=== PATIENT | male | born 1925 | race Caucasian/White ===

== ENCOUNTER 2016-06-03 16:28 | Inpatient (IN) | payer OTHER ==
[~2016-06-03] VITALS: Ht 188 cm; Wt 72.0 kg
--- NOTE | 2016-06-03 18:11 | ED CLINICAL REPORT ---
Clinical Report - Physicians/Mid Levels [facility] [address] [place] [address] 06/03/2016 16:34 Patient: JAZMYN HENNESSY Time Seen: 17:14. Arrived- By private vehicle. Historian- patient. HISTORY OF PRESENT ILLNESS Chief Complaint: WEIGHT LOSS, BLACK STOOLS and WEAKNESS. This started several months ago and is still present and now worse. It was gradual in onset and has been constant. The patient has had weight loss, fatigue and weakness. (patient presents with multiple vague complaints. He reports that over the past 9 months he has had significant weight loss. He also reports that he has had problems swallowing and that this is become progressively worse he says that it makes him "spit up and vomit" he struggles handling his own secretions. He says that recently he has started bringing up blood and discussion with him it's not clear whether he is coughing this up or whether it's coming from his esophagus. He's been told in the past that he should have a scope but down to look at why his swallowing is so difficult. He hasn't up to this point decided whether or not he wants it done but now feels that he would like to. Additionally he reports having dark stools and is not sure whether this is due to the iron that he has been taking or some other reason. Over the past week he has not been able to get up and his son with whom he lives his struggling to help him with his activities of daily living). REVIEW OF SYSTEMS No chills, fever, sweats, calf pain or chest pain. No diarrhea. He has had fatigue and black stools. He has had a cough productive of copious amounts of thick, yellow, frankly bloody sputum (for 2 days). He has had moderate pedal edema involving the right and left leg (chronically). It has been similar to previous symptoms. He has had mild constipation (chronically). All systems otherwise negative, except as recorded above. PAST HISTORY Problems: Neuropathy. Pneumonia. Bradycardia. Hemorrhoids. Skull Fracture. Additional Surgeries: Cardiac stents . Cholecystectomy. Pacemaker. Medications: Zantac Oral. Vit X4-[id number]-Cslr-FA-B6-Zn-CU Oral. Colace Oral. Azelastine HCl Nasal. Fluticasone Propionate Nasal. Simvastatin Oral (Tablet 10 mg) 1 tablet, at bedtime. KCL 20 meq, daily. Fenofibrate Oral. Eliquis Oral (Tablet 5 mg) 1 tablet. Carvedilol Phosphate ER Oral 6.25, daily . Allergies: No Known Drug Allergy. SOCIAL HISTORY Smoker- current status unknown. He lives with a family member. Has good social support. ADDITIONAL NOTES The nursing notes have been reviewed. PHYSICAL EXAM Vital Signs: 06/03/2016 17:18 BP: 117/73. HR: 71. RR: 20. O2 saturation: 99%. Temp: 98.4 F. Appearance: Alert. Eyes: Pupils equal, round and reactive to light. (bilateral ectropion). ENT: Pharynx normal. Neck: Normal inspection. Neck supple. CVS: 1/6 systolic murmur. Respiratory: No respiratory distress. Decreased air movement. No rales, rhonchi, wheezes or prolonged expiration. Abdomen: No visible injury. Soft and nontender. Bowel sounds normal. No organomegaly. No mass. Back: (kyphotic). Skin: Skin warm and dry. Pallor. Extremities: Bilateral mild edema of the lower extremities. No calf tenderness. Neuro: Oriented X 3. LABS, X-RAYS, AND EKG EKG: Paced rhythm. Ectopic beats. Premature ventricular contractions. Prior EKG unavailable. The study has been independently viewed by me. Chest X-ray: (IMPRESSION: 1. Mild pleural and parenchymal scarring in the lungs, with evidence of old granulomatous disease. 2. Left subclavian pacemaker.). The X-rays were interpreted by the radiologist and contemporaneously by me. Laboratory Tests: CBC w Diff: (BEULAH: 06/03/2016 18:00) ( MsgRcvd 06/03/2016 18:11) Final results Test Result Flag Units (Reference) WHITE BLOOD COUNT 9.2 K/uL (4.5-11.5) RED BLOOD COUNT 4.50 M/uL (4.50-5.90) HEMOGLOBIN 13.5 gm/dL (13.5-17.5) HEMATOCRIT 40.6 L % (41.0-53.0) MEAN CELL VOLUME 90 fL (80-100) MEAN CORPUSCULAR HGB 30 pg (26-34) MEAN CORPUSCULAR HGB CONC 33 g/dL (31-37) RED CELL DISTRIBUTION WIDTH 16.3 H % (11.6-14.8) PLATELET COUNT 227 K/uL (150-400) NEUTROPHIL % 71.4 % (50-75) LYMPH % 19.4 L % (25-40) MONO % 7.9 % (3-14) EOSINOPHIL % 0.8 % (0-4) BASOPHIL % 0.5 % (0-2) PT with INR: (BEULAH: 06/03/2016 18:00) ( [facility] Final results Test Result Flag Units (Reference) INR 1.4 H (0.8-1.2) Low Intensity Therapy: INR 1.5-2.0 PT range 18.5-23.1Mod.Intensity Therapy: INR 2.0-3.0 PT range 23.1-31.5High Intensity Therapy: INR 2.5-3.5 PT range 27.4-35.5High Intensity Therapy 2: INR 3.0-4.0 PT range 31.5-39.3 APTT 42 H SECONDS (24-34) D-DIMER QUANTITATIVE < 0.27 L ug/mLFEU (0.27-0.52) The primary value of this quantitative assay relates toits negative predictive value (i.e. exclusion) of pulmonaryembolism/deep vein thrombosis/DIC.Elevated levels of d-dimer may also occur with:, age, cancer, inflammation, liver disease,post-op, infection, hematoma, coronary disease, peripheralarteriopathy, bleeding disorders and thrombolytic treatment.Results should be correlated with other clinical andradiological data.Testing Methodology: Latex Immunoassay BNP: (BEULAH: 06/03/2016 18:00) ( MsgRcvd 06/03/2016 18:43) Final results Test Result Flag Units (Reference) B-TYPE NATRIURETIC PEPTIDE 386 H pg/ml (5-100) CMP: (BEULAH: 06/03/2016 18:00) ( MsgRcvd 06/03/2016 18:31) Final results Test Result Flag Units (Reference) GLUCOSE 101 mg/dL (70-110) BUN 21 H mg/dL (7-18) CREATININE 1.6 H mg/dL (0.6-1.3) Estimated GFR 43.47 mL/min Estimated GFR- 52.69 mL/min Note: Persistent reduction over 3 months in eGFR<60 mL/min/1.73 m2 defines CKD. Patients with eGFR values>=60 mL/min/1.73 m2 may also have CKD if evidence ofpersistent proteinuria. Additional information may be foundat [email or web address]. SODIUM 147 H mmol/L (136-145) POTASSIUM 3.2 L mmol/L (3.5-5.1) CHLORIDE 108 H mmol/L (98-107) CARBON DIOXIDE 26 mmol/L (21-32) CALCIUM 9.2 mg/dL (8.5-10.1) TOTAL PROTEIN 7.2 g/dL (6.4-8.2) ALBUMIN 3.0 L g/dL (3.3-5.0) BILIRUBIN, TOTAL 1.0 mg/dL (0.0-1.0) ALKALINE PHOSPHATASE 88 U/L (46-116) AST (SGOT) 23 U/L (15-37) ALT (SGPT) 14 U/L (12-78) LIPASE 109 U/L (73-393) AMYLASE 39 U/L (25-115) CPK 42 U/L (24-260) TROPONIN I <0.05 ng/mL (0.00-1.5) TROPONIN REFERENCE RANGE:<0.1 NEGATIVE0.1-1.5 INDETERMINANT>1.5 POSITIVE . PROGRESS AND PROCEDURES Course of Care: Patient is stable. Discussed case with hospitalist, (Caitlyn). Reviewed test results and need for additional work-up. Agreed upon treatment plan, need for patient follow-up and decision to admit. Health care provider will see patient in hospital. Consult obtained from surgery. Juan M. Case discussed. Phone consult only. Will see patient in the hospital tomorrow. Patient/family counseled. Old medical records ordered. Old records unavailable. Disposition: Admitted. CLINICAL IMPRESSION Atrial fibrillation. GI bleed. Dysphagia. (Electronically signed by Harlan Garcia MD 06/03/2016 20:49)
--- NOTE | 2016-06-03 18:11 | ED NURSING NOTES ---
Clinical Report - Nurses [facility] [address] [place] [address] 06/03/2016 16:34 [id number] Triage time 17:18 Jun 03 2016. Acuity: LEVEL 3. Chief Complaint: WEIGHT LOSS, FATIGUE, POOR APPETITE, DIZZINESS, WEAKNESS, CONFUSION, NOSEBLEED, NAUSEA, VOMITING, CONSTIPATION, BLACK STOOLS and BACK PAIN. OLGA COMA SCORE: Olga Coma Scale: 15- eyes open spontaneously (4); best verbal response- oriented x 4 (5); best motor response- obeys commands (6). --17:36 Joe Perez R.N. 17:18 06/03/16. BP: 117/73. HR: 71. RR: 20. O2 saturation: 99%. Temp: 98.4 F. Pain level now 0/10. --17:36 Joe Perez R.N. Weight: 67.5 kg stated. Height/Length: 73 inches Per Patient. BMI: 19.6. --17:32 Joe Perez R.N. Medications Carvedilol Phosphate ER Oral 6.25, daily . --17:24 Joe Perez R.N. Eliquis Oral (Tablet 5 mg) 1 tablet. --17:25 Joe Perez R.N. Fenofibrate Oral. --17:26 Joe Perez R.N. KCL 20 meq, daily. --17:26 Joe Perez R.N. Simvastatin Oral (Tablet 10 mg) 1 tablet, at bedtime. --17:27 Joe Perez R.N. Fluticasone Propionate Nasal. --17:27 Joe Perez R.N. Azelastine HCl Nasal. --17:28 Joe Perez R.N. Colace Oral. --17:28 Joe Perez R.N. Vit O0-QarzZl-Kade-FA-B6-Zn-CU Oral. --17:29 Joe Perez R.N. Zantac Oral. --17:29 Joe Perez R.N. Allergies No Known Drug Allergy. --17:29 Joe Perez R.N. History Arrived by private vehicle. Historian: patient. Accompanied by son. The patient has had weakness and a cough. No fever, difficulty breathing or skin rash. Denies muscle aches. PAST MEDICAL HX: Pneumonia (In 1945). No history of diabetes mellitus or hypertension. Immunizations: up-to-date. SOCIAL HX: Smoker- current status unknown. Occasional alcohol use. No drug use. SELF HARM ASSESSMENT: A self harm assessment was performed. The patient answered "no" to the question "Have you recently felt down, depressed, or hopeless?" and "Do you have thoughts of harming or killing yourself?". FALL RISK ASSESSMENT: Fall risk assessment completed. No fall risk identified. NUTRITIONAL RISK ASSESSMENT: The nutritional risk assessment revealed no deficiencies. FUNCTIONAL ASSESSMENT: Functional assessment: no impairments noted. LEARNING NEEDS ASSESSMENT: The learning needs assessment revealed no barriers. ABUSE ASSESSMENT: Abuse assessment: (yes) The patient was asked "Do you feel safe in your home?". SKIN INTEGRITY ASSESSMENT: Skin integrity risk assessment completed. No skin integrity risk identified. --17:36 Joe Perez R.N. PROBLEMS: Bradycardia. Hemorrhoids. Skull Fracture. --17:32 Joe Perez R.N. ADDITIONAL SURGERIES: Cardiac stents . Cholecystectomy. Pacemaker. --17:32 Joe Perez R.N. Interventions ID band on patient. --17:36 Joe Perez R.N. PHYSICAL ASSESSMENT To room via wheelchair. GENERAL / NEURO / PSYCH: Alert. Oriented X 4. Appears in no acute distress. He has had new onset of constant, generalized weakness. HEENT: Pupils equal, round and reactive to light. No facial asymmetry noted. Mucous membranes are pink. RESPIRATORY: Respirations not labored. Cough productive of frankly bloody sputum. Chest nontender. Breath sounds within normal limits. CVS: ( has a pacemaker). Pulses within normal limits. GI / : ( States has black stools). Abdomen soft and nontender. SKIN: Skin intact. Skin is warm and dry. Normal skin turgor. --18:08 Joe Perez R.N. ( When transferring patient to bed from wheelchair patient collapsed hanging from the edge of the bed son in law picked up the patient and laid him down. No injury.). --18:11 Joe Perez R.N. NURSING PROGRESS NOTES 17:44 06/03/2016 Site #1 started via IV in the left antecubital space with an 20g angiocath, with aseptic technique and good blood return; one attempt. Saline lock flushed with 10 mL saline. --17:44 Joe Perez R.N. The initial plan of care for this patient includes an assessment with efforts to address patient positioning and appropriate ambient lighting; impairment of the respiratory and gastrointestinal system. monitoring and evaluation advisor, pulse oximeter and NIBP monitor placed on patient. Patient gowned. Head of bed elevated (90). Reassurance given. Call light placed in reach. Side rails up x 1. Bed placed in lowest position. Brakes of bed on. --18:09 Joe Perez R.N. 18:50 06/03/16. BP: 103/66. HR: 90. RR: 18. O2 saturation: 90%. 18:30 06/03/16. BP: 103/59. HR: 77. RR: 21. O2 saturation: 96%. 18:15 06/03/16. BP: 118/71. HR: 88. RR: 18. O2 saturation: 98%. --19:07 Joe Perez R.N. ( patient lying down 117/73 HR 76 sitting 118/71 HR 76 patient is unable to stand r/t weakness.). --19:09 Joe Perez R.N. ( report given to Suzette FINN). --19:10 Joe Perez R.N. 19:16 06/03/2016 Started bag #1 1000 mL IV Fluids IV NS (Saline); at 100 mL/hr over 9 hour(s) via site #1 --19:17 Riaz Alvarado The patient reports no complaints and he is calm and resting quietly. Two patient identifiers checked. Call light placed in reach. Side rails up x 2. Bed placed in lowest position. Brakes of bed on. --20:14 Riaz Alvarado 20:15 06/03/16. BP: 115/70. HR: 78. RR: 13. O2 saturation: 100%. Temp: deferred. Pain level now: 0/10. --20:16 Riaz Alvarado 20:23 Patient given male H&P form, unable to complete at this time. --20:23 McQuoid, Madelyn, ER Tech1 20:26 06/03/2016 PROTONIX 40MG (Pantoprazole Sodium) IVP 40 mg given over 3 minute(s) via site #1. Allergies verified. IV patency established. IV site checked: no pain, redness, or swelling. IV flushed thoroughly pre- and post-medication administration. IVP given by RN. --20:26 Riaz Alvarado 21:29 06/03/2016 Started IV Fluids IV NS (Saline); at 100 mL/hr via site #1 --21:29 Riaz Alvarado DISPOSITION / DISCHARGE Condition at departure: stable. Admitted. Report was given to a nurse via a phone call. Report included patient's care, treatment, medications, reviewed medication reconcilliation, and condition (including any recent changes or anticipated changes). All questions were answered. Report was acknowledged and care was transferred. Bed obtained and ready. Patient has no belongings. --21:18 Riaz Alvarado Departure time: 2119. --21:26 Riaz Alvarado 21:27 06/03/16. BP: 114/72. HR: 76. RR: 16. O2 saturation: 96%. Temp: deferred. Pain level now: 0/10. --21:29 Riaz Alvarado Locked/Released at 06/03/2016 21:30 by Riaz Alvarado
--- NOTE | 2016-06-03 18:12 | ED ORDER SUMMARY ---
..... Patient: JAZMYN HENNESSY OrderSheet [facility] VisitID: [id number] [place] [address] 89y, M Registration Date/Time: 06/03/2016 ORDER SHEET Weight: 67.5 kg (stated) Allergies: No Known Drug Allergy GENERAL ORDERS: Chest 2V Urgent (17:14 06/03/2016 Larry HEATON) (Ack 17:28 LNations ER Tech1) (18:12 MCampbell) Help Desk Operator (Continuous) (17:14 06/03/2016 Larry HEATON) (Ack 17:27 LNations ER Tech1) (19:07 LWhalen R.N.) CMP Urgent (17:06/03/2016 Larry HEATON) (Ack 17:27 LNations ER Tech1) (20:26 TBowen R.N.) CBC w Diff Urgent (17:06/03/2016 Larry HEATON) (Ack 17:27 LNations ER Tech1) (20:26 TBowen R.N.) UA-Culture if indicated Urgent (17:15 06/03/2016 Larry HEATON) (Ack 17:27 LNations ER Tech1) (19:17 TBowen R.N.) PT with INR Urgent (17:15 06/03/2016 Larry HEATON) (Ack 17:27 LNations ER Tech1) (20:26 TBowen R.N.) PTT Urgent (17:06/03/2016 Larry HEATON) (Ack 17:27 LNations ER Tech1) (20:26 TBowen R.N.) Amylase Urgent (17:06/03/2016 Larry HEATON) (Ack 17:27 LNations ER Tech1) (20:26 TBowen R.N.) Lipase Urgent (17:06/03/2016 Larry HEATON) (Ack 17:28 LNations ER Tech1) (20:26 TBowen R.N.) CPK Urgent (17:06/03/2016 Laryr HEATON) (Ack 17:28 LNations ER Tech1) (20:26 TBowen R.N.) Troponin-I Urgent (17:15 06/03/2016 Larry HEATON) (Ack 17:28 LNations ER Tech1) (20:26 TBowen R.N.) D-Dimer Urgent (17:15 06/03/2016 Larry HEATON) (Ack 17:28 LNations ER Tech1) (20:26 TBowen R.N.) BNP Urgent (17:15 06/03/2016 Larry HEATON) (Ack 17:28 LNations ER Tech1) (20:26 TBowen R.N.) Pulse oximeter (17:15 06/03/2016 Larry HEATON) (Ack 17:27 LNations ER Tech1) (19:07 LWhalen R.N.) EKG - ER Stat (17:15 06/03/2016 Larry HEATON) (Ack 17:27 LNations ER Tech1) (18:38 LNations ER Tech1) Vitals - Orthostatic (17:16 06/03/2016 Larry HEATON) (Ack 17:28 LNations ER Tech1) (18:11 LWhalen R.N.) Type & Screen Urgent (20:12 06/03/2016 Larry HEATON) (Ack 20:16 AMcQuoid ER Tech1) MEDICATION ORDERS: IV FLUIDS: IV Saline Lock (17:15 06/03/2016 Larry HEATON) (17:44 LWhalen R.N.) IV NS : initial bolus 250 mL (1000 mL/hr), then 100 mL/hr for 4h (NOW); Urgent (18:43 06/03/2016 Larry HEATON) (19:17 TBowen R.N.) Protonix IVP 40mg 40 mg (Mix in NS 10ml over 2min) (20:15 06/03/2016 Larry HEATON) (20:26 TBowen R.N.) ORDER SHEET NOTES: [Electronically signed by Harlan Garcia MD (20:49 06/03/2016)] [Electronically signed by Suzette Merlos R.N. (21:30 06/03/2016)] [Electronically locked/signed by Suzette Merlos R.N. (21:30 06/03/2016)]
--- NOTE | 2016-06-03 18:12 | ED ORDER SUMMARY ---
..... Patient: JAZMYN HENNESSY OrderSheet [facility] VisitID: [id number] [place] [address] 89y, M Registration Date/Time: 06/03/2016 ORDER SHEET Weight: 67.5 kg (stated) Allergies: No Known Drug Allergy GENERAL ORDERS: Chest 2V Urgent (17:14 06/03/2016 Larry HEATON) (Ack 17:28 LNations ER Tech1) (18:12 MCampbell) Removable Prosthodontist (Continuous) (17:14 06/03/2016 Larry HEATON) (Ack 17:27 LNations ER Tech1) (19:07 LWhalen R.N.) CMP Urgent (17:06/03/2016 Larry HEATON) (Ack 17:27 LNations ER Tech1) (20:26 TBowen R.N.) CBC w Diff Urgent (17:06/03/2016 Larry HEATON) (Ack 17:27 LNations ER Tech1) (20:26 TBowen R.N.) UA-Culture if indicated Urgent (17:15 06/03/2016 Larry HEATON) (Ack 17:27 LNations ER Tech1) (19:17 TBowen R.N.) PT with INR Urgent (17:15 06/03/2016 Larry HEATON) (Ack 17:27 LNations ER Tech1) (20:26 TBowen R.N.) PTT Urgent (17:06/03/2016 Larry HEATON) (Ack 17:27 LNations ER Tech1) (20:26 TBowen R.N.) Amylase Urgent (17:06/03/2016 Larry HEATON) (Ack 17:27 LNations ER Tech1) (20:26 TBowen R.N.) Lipase Urgent (17:06/03/2016 Larry HEATON) (Ack 17:28 LNations ER Tech1) (20:26 TBowen R.N.) CPK Urgent (17:06/03/2016 Larry HEATON) (Ack 17:28 LNations ER Tech1) (20:26 TBowen R.N.) Troponin-I Urgent (17:15 06/03/2016 Larry HEATON) (Ack 17:28 LNations ER Tech1) (20:26 TBowen R.N.) D-Dimer Urgent (17:15 06/03/2016 Larry HEATON) (Ack 17:28 LNations ER Tech1) (20:26 TBowen R.N.) BNP Urgent (17:15 06/03/2016 Larry HEATON) (Ack 17:28 LNations ER Tech1) (20:26 TBowen R.N.) Pulse oximeter (17:15 06/03/2016 Larry HEATON) (Ack 17:27 LNations ER Tech1) (19:07 LWhalen R.N.) EKG - ER Stat (17:15 06/03/2016 Larry HEATON) (Ack 17:27 LNations ER Tech1) (18:38 LNations ER Tech1) Vitals - Orthostatic (17:16 06/03/2016 Larry HEATON) (Ack 17:28 LNations ER Tech1) (18:11 LWhalen R.N.) Type & Screen Urgent (20:12 06/03/2016 Larry HEATON) (Ack 20:16 AMcQuoid ER Tech1) MEDICATION ORDERS: IV FLUIDS: IV Saline Lock (17:15 06/03/2016 Larry HEATON) (17:44 LWhalen R.N.) IV NS : initial bolus 250 mL (1000 mL/hr), then 100 mL/hr for 4h (NOW); Urgent (18:43 06/03/2016 Larry HEATON) (19:17 TBowen R.N.) Protonix IVP 40mg 40 mg (Mix in NS 10ml over 2min) (20:15 06/03/2016 Larry HEATON) (20:26 TBowen R.N.) ORDER SHEET NOTES: [Electronically signed by Harlan Garcia MD (20:49 06/03/2016)] [Electronically signed by Suzette Merlos R.N. (21:30 06/03/2016)] [Electronically locked/signed by Suzette Merlos R.N. (21:30 06/03/2016)]
--- NOTE | 2016-06-03 18:19 | DIAGNOSTIC IMAGING REPORT ---
PROCEDURE: XR CHEST 2 VIEW INDICATION: Hemoptysis versus hematemesis. TECHNIQUE: PA and lateral views. COMPARISON: None. FINDINGS: Mild pleural and parenchymal scarring in the mid and lower lungs. There is a 4 mm old granuloma in the left lateral mid lung. are clear. The rest of the lungs are clear. There is a left subclavian dual lead pacemaker. Heart and mediastinum are of normal size. Thorax is normal. IMPRESSION: 1. Mild pleural and parenchymal scarring in the lungs, with evidence of old granulomatous disease. 2. Left subclavian pacemaker. 3. Otherwise negative chest.
[2016-06-03 20:38] VITALS: BP 115/70
--- NOTE | 2016-06-03 20:59 | Progress Note ---
Subjective General Admission History and Physical Examination Patient Name: Fidel James Admission Date: June 03, 2016 Primary Care Provider: Jr Pablo M.D. Attending Physician: Michael Brady M.D. Admitting Physician: Michael Brady M.D. CODE STATUS: NO CODE Room: [facility] SUBJECTIVE Historian: Patient Reliability: Fair Chief Complaint: Dysphagia, melena, hematemesis History of Present Illness: The patient is a 89-year-old white male with a significant past medical history of atrial fibrillation, chronic anticoagulation, heart block status post pacemaker placement, hypercholesterolemia, coronary artery disease, allergic rhinitis, who presented to [facility] emergency department on the day of admission secondary to complaints of generalized weakness, fatigue, nausea/vomiting blood, questionable epistaxis, and black stools unchanged patient on iron. [facility] ER evaluation was consistent with suspected upper GI bleed, dysphagia and generalized weakness. Secondary to the above, the patient was admitted by Michael Brady M.D. for further evaluation and treatment. The history of present illness apparently began 9 months prior to admission when the patient experienced increasing difficulties with swallowing. He apparently has had recurrent episodes of food being lodged in the esophagus with resultant emesis. This is most severe with meat and bread. Secondary to these complaints the patient was seen by his PCP and underwent swallowing evaluation with barium swallow which was noted to be unremarkable according to the patient. He subsequently was seen by ENT and underwent upper airway evaluation which was reportedly unremarkable. He was treated with nasal washings, Zantac 150 mg by mouth twice a day, and inhalation/intranasal corticosteroids. Despite these efforts his symptoms have not improved. Recently the patient had persistent and increasing symptoms. He is unable to swallow even liquids at a rapid rate at this time. He has persistent problems with solid foods and is unable to take anything solid at this time. This has led to significant weight loss of over 30 pounds in the past several months. This is been associated with generalized weakness/fatigue. He has noted recurrent episodes of emesis with small amounts of blood until today when he noticed significant increase in the amount of bright red blood with emesis. Secondary to the above the patient presented to [facility] emergency department for further evaluation and treatment. PAST MEDICAL HISTORY Illnesses: 1. Atrial fibrillation 2. Hypercholesterolemia 3. Coronary disease-status post coronary stent placement 4. Heart block status post pacemaker placement 5. Chronic anticoagulation 6. Allergic rhinitis Allergies: 1. No Known Drug Allergies Medications: 1. Coreg 6.25 mg by mouth daily 2. Eliquis 5 mg by mouth daily 3. KCl 20 mEq by mouth daily 4. Fenofibrate dosage unknown 5. Simvastatin 10 mg by mouth daily 6. Flonase 2 inhalations each nostril daily 7. Colace 100 mg by mouth twice a day 8. Zantac 150 mg by mouth twice a day 9. Multivitamin one by mouth daily 10. Azelastine dosage unknown 11. Lasix 20 mg by mouth twice a day Surgery: 1. Cardiac stent placement 2. Cholecystectomy 3. Pacemaker placement Injuries: 1. No significant Hospitalizations: 1. For above surgery and medical problems FAMILY HISTORY Parents: 1. Father, , 74, aortic aneurysm, 2. Mother, , 56, C&S neoplasm Siblings: 1. Male, Juaquin, , 60, Thoracic aortic aneurysm 2. Male, Michael, living, 83, prostate CA Children: 1. Male, Padilla, living, adopted Other significant family history: None SOCIAL HISTORY 1. Marital Status: , 2001, 52 years 2. Rastafarian: [employer]-P[employer]ism 3. Education: High school and college with associates degree 4. Employment History: retired [employer] 5. Occupational health exposures: Dust, radiation, lead, mercury, loud noises HABITS 1. Tobacco: 10 pack years, currently nonsmoker 2. Drugs: None 3. Alcohol: 3 ounces per week 4. Caffeine: None HEALTH SUPERVISION Item/Test 1. Vision screen: 2014 2. Cholesterol Profile: 2015 3. PSA: Unknown 4. MANNIE: No recent 5. FOBT: 2013 6. Blood Glucose: 2016 7. Colonoscopy: 1979 8. History and physical exam: No recent 9. Audiogram: No recent 10. Mammogram: N/A 11. Pap/pelvic exam: N/A IMMUNIZATIONS: 1. Pneumococcal: 2011 2. Influenza: 2015 3. Tetanus: 1950 ADVANCED DIRECTIVES: 1. Living well: Yes 2. POLST: No 3. CODE STATUS: NO CODE-DO NOT RESUSCITATE, DO NOT INTUBATE 4. Durable Power Automobile Mechanic Assistant Health care: Yes 5. Donor card: No REVIEW OF SYSTEMS Remarkable for those things stated in the history of present illness and past medical history. Seventeen point review of system completed with the following notable findings: General: Weakness, weight loss Eyes: Decreased visual acuity requiring corrective lenses Nose: Nasal congestion, sinus problems Gastrointestinal: Difficulty swallowing, vomiting, Neurological: Balance problems Physical Exam Vital Signs / I&Os Vital Signs Date Time Temp Pulse Resp B/P Pulse O2 O2 Flow FiO2 Ox Delivery Rate 06/03 2037 78 13 115/70 100 General Appearance Alert, Oriented X3, Cooperative, No acute distress HEENT Atraumatic, PERRLA, EOMI, Moist mucous membranes Lungs Clear to auscultation, Normal air movement Neck Supple, No JVD, 2+ carotid pulse wo bruit Cardiovascular Regular rate and rhythm, Normal S1 and S2 Abdomen Normal bowel sounds, Soft, No tenderness, No guarding Extremities No cyanosis, No clubbing, No edema, Normal pulses Neurological Cranial nerves intact, No lateralizing signs Psych/Mental Status Mental status normal, Mood normal LAB Results Laboratory Tests 06/03 06/03 1800 1800 Chemistry Plasma Sodium (136 - 145 mmol/L) 147 Plasma Potassium (3.5 - 5.1 mmol/L) 3.2 Plasma Chloride (98 - 107 mmol/L) 108 CO2 (Enzymatic) (21 - 32 mmol/L) 26 BUN (7 - 18 mg/dL) 21 Creatinine (0.6 - 1.3 mg/dL) 1.6 Est GFR ( Amer) (mL/min) 52.69 Est GFR (Non-Af Amer) (mL/min) 43.47 Glucose (70 - 110 mg/dL) 101 Plasma Calcium (8.5 - 10.1 mg/dL) 9.2 Total Bilirubin (0.0 - 1.0 mg/dL) 1.0 AST (15 - 37 U/L) 23 ALT (12 - 78 U/L) 14 Alkaline Phosphatase (46 - 116 U/L) 88 Creatine Kinase (24 - 260 U/L) 42 Troponin (0.00 - 1.5 ng/mL) <0.05 B-Natriuretic Peptide (5 - 100 pg/ml) 386 Total Protein (6.4 - 8.2 g/dL) 7.2 Albumin (3.3 - 5.0 g/dL) 3.0 Amylase (25 - 115 U/L) 39 Lipase (73 - 393 U/L) 109 Coagulation INR (0.8 - 1.2) 1.4 APTT (24 - 34 SECONDS) 42 D-Dimer, Quantitative (0.27 - 0.52 ug/mLFEU) < 0.27 Hematology WBC (4.5 - 11.5 K/uL) 9.2 RBC (4.50 - 5.90 M/uL) 4.50 Hgb (13.5 - 17.5 gm/dL) 13.5 Hct (41.0 - 53.0 %) 40.6 MCV (80 - 100 fL) 90 MCH (26 - 34 pg) 30 RDW (11.6 - 14.8 %) 16.3 Neut % (Auto) (50 - 75 %) 71.4 Lymph % (Auto) (25 - 40 %) 19.4 Gates % (Auto) (3 - 14 %) 7.9 Eos % (Auto) (0 - 4 %) 0.8 Baso % (Auto) (0 - 2 %) 0.5 Plt Count, EDTA (150 - 400 K/uL) 227 PUBS MCHC (31 - 37 g/dL) 33 Imaging Chest X-Ray IMPRESSION: 1. Mild pleural and parenchymal scarring in the lungs, with evidence of old granulomatous disease. 2. Left subclavian pacemaker. 3. Otherwise negative chest. Dictated by: PETER NEFF MD D: SHIRLEY;06/03/16 0412 Assessment and Plan Problem List 1. GI bleed Plan -The patient presents with history of suspected upper GI bleed. -History of dysphagia -History of hematemesis and melena, stool Hemoccult positive -Patient with possibility of epistaxis. Hematemesis and melena may be secondary to epistaxis not GI source. -DC anticoagulation, DC Eliquis -Serial hemoglobin/hematocrit -Protonix 40 mg IV twice a day -Type and screen -Consult general surgery for upper endoscopy in a.m. 2. Dysphagia Plan -Patient gives history of dysphagia -Previous treatment with Zantac -Protonix 40 mg IV twice a day -Plan upper endoscopy in a.m. 3. Epistaxis Status Acute Onset Date Unknown Plan -Patient with history of epistaxis unclear if this is related to hematemesis or independent epistaxis -See above -DC Eliquis -Monitor 4. Chronic anticoagulation Status Chronic Onset Date Unknown Plan -Patient with history of anticoagulation secondary to atrial fibrillation -Hold anticoagulation, Eliquis -Monitor 5. Atrial fibrillation Status Chronic Onset Date Unknown Plan -Patient with history of atrial fibrillation -Previous anticoagulation with Eliquis -Heart rate controlled with paced rhythm -Check thyroid function tests -Recheck echocardiogram if not done recently -Continue Coreg as appropriate 6. Hypernatremia Status Acute Onset Date Unknown Plan -Patient with findings of hypernatremia -IV fluids-D5 0.2 normal saline with KCl 20 mEq per liter at 100 cc per hour -Monitor 7. CKD (chronic kidney disease) stage 3, GFR 30-59 ml/min Status Chronic Onset Date Unknown Plan -Patient with findings of chronic kidney disease stage III -Monitor -Consider renal ultrasound if not previously performed 8. Hypokalemia Status Acute Onset Date Unknown Plan -Patient with findings of mild hyponatremia -Potassium 3.2 -IV fluids with potassium supplementation -KCl 20 mEq IV now -Monitor 9. Malnutrition Status Acute Onset Date Unknown Plan -Patient presents with poor oral intake -Weight loss of greater than 15% of weight in the past 3 months -Albumin low at 3.0 -Assess nutritional status, nutritional consult -Encourage oral intake once patient taking well -Multivitamin 10. Anemia Status Acute Onset Date Unknown Plan -Patient with findings of mild anemia -Recent epistaxis and possible GI bleed -Hold Eliquis/anticoagulation -Check serum iron profile, B12, folate -Serial hemoglobin/hematocrit secondary to suspected GI bleeding -Type and screen Current status: Unstable, fair Anticipated discharge date: Anticipated discharge in 2-3 days Anticipated discharge placement: Home Patient care time: Time spent in chart review, patient interview, physical exam, CPOE, and care documentation: 70 minutes Visit to patient today: 1 Complexity of care: High E&M Codes Admission: Inpt-High/16225
--- NOTE | 2016-06-03 21:30 | ED DISCHARGE INSTRUCTIONS ---
Patient: JAZMYN HENNESSY E General Instructions [facility] VisitID: [id number] [address] [place] [address] 89y, M Registration Date/Time: 06/03/2016 Atrial fibrillation. GI bleed. Dysphagia. (Electronically signed by Harlan Garcia MD 06/03/2016 20:49)
--- NOTE | 2016-06-03 21:30 | ED MAR SUMMARY ---
..... Medication Administration Record [facility] [address] [place] [address] Patient: JAZMYN HENNESSY Visit ID: [id number] 89y, M Weight: 67.5 kg Height/Length: 73 in BMI: 19.6 ALLERGIES: No Known Drug Allergy Start 19:16 06/03/2016 Riaz Alvarado Medication Administered: IV NS (SALINE), Dose: IV Fluids over 9 hour(s), Rate: 100 mL/hr, Dispensed: 1000 mL bag, Site: #1 left AC. Medication Ordered: IV NS : initial bolus 250 mL (1000 mL/hr), then 100 mL/hr for 4h (NOW); Urgent. Given 20:26 06/03/2016 Riaz Alvarado Medication Administered: PROTONIX 40MG [IVP] (PANTOPRAZOLE SODIUM), Dose: 40 mg IVP over 3 minute(s), Site: #1 left AC. Medication Ordered: Protonix IVP 40mg 40 mg (Mix in NS 10ml over 2min). Start 21:29 06/03/2016 Riaz Alvarado Medication Administered: IV NS (SALINE), Dose: IV Fluids, Rate: 100 mL/hr, Site: #1 left AC. Medication Ordered: IV NS : initial bolus 250 mL (1000 mL/hr), then 100 mL/hr for 4h (NOW); Urgent.
--- NOTE | 2016-06-03 21:30 | ED DISCHARGE INSTRUCTIONS ---
Patient: JAZMYN HENNESSY E General Instructions [facility] VisitID: [id number] [address] [place] [address] 89y, M Registration Date/Time: 06/03/2016 Atrial fibrillation. GI bleed. Dysphagia. (Electronically signed by Harlan Garcia MD 06/03/2016 20:49)
--- NOTE | 2016-06-03 21:30 | ED MED RECONCILIATION SUMMARY ---
Patient: JAZMYN HENNESSY Medication Reconciliation Report [facility] VisitID: [id number] [place] [address] 89y, M Registration Date/Time: 06/03/2016 Weight: 67.5 kg Height/Length: 73 in. BMI: 19.6 ALLERGIES: No Known Drug Allergy The patient's Home Medications are listed below: THE FOLLOWING MEDICATIONS NEED TO BE RECONCILED: Azelastine HCl Nasal Carvedilol Phosphate ER Oral 6.25, daily Colace Oral Eliquis Oral (5 mg) 1 tablet Fenofibrate Oral Fluticasone Propionate Nasal KCL 20 meq, daily Simvastatin Oral (10 mg) 1 tablet, at bedtime Vit [id number] Oral Zantac Oral The source(s) of the original Home Medication information: Not obtained. The following Medications were given to the patient in the Emergency Department: IV NS IV Fluids bolus 0, then 100 mL/hr, administered: 06/03/2016 7:16:00 PM PROTONIX 40MG [IVP] IVP 40 mg, administered: 06/03/2016 8:26:00 PM IV NS IV Fluids bolus 0, then 100 mL/hr, administered: 06/03/2016 9:29:00 PM The following Medications were prescribed to the patient: None.
--- NOTE | 2016-06-03 21:30 | ED MED RECONCILIATION SUMMARY ---
Patient: JAZMYN HENNESSY Medication Reconciliation Report [facility] VisitID: [id number] [place] [address] 89y, M Registration Date/Time: 06/03/2016 Weight: 67.5 kg Height/Length: 73 in. BMI: 19.6 ALLERGIES: No Known Drug Allergy The patient's Home Medications are listed below: THE FOLLOWING MEDICATIONS NEED TO BE RECONCILED: Azelastine HCl Nasal Carvedilol Phosphate ER Oral 6.25, daily Colace Oral Eliquis Oral (5 mg) 1 tablet Fenofibrate Oral Fluticasone Propionate Nasal KCL 20 meq, daily Simvastatin Oral (10 mg) 1 tablet, at bedtime Vit [id number] Oral Zantac Oral The source(s) of the original Home Medication information: Not obtained. The following Medications were given to the patient in the Emergency Department: IV NS IV Fluids bolus 0, then 100 mL/hr, administered: 06/03/2016 7:16:00 PM PROTONIX 40MG [IVP] IVP 40 mg, administered: 06/03/2016 8:26:00 PM IV NS IV Fluids bolus 0, then 100 mL/hr, administered: 06/03/2016 9:29:00 PM The following Medications were prescribed to the patient: None.
--- NOTE | 2016-06-03 21:30 | ED MAR SUMMARY ---
..... Medication Administration Record [facility] [address] [place] [address] Patient: JAZMYN HENNESSY Visit ID: [id number] 89y, M Weight: 67.5 kg Height/Length: 73 in BMI: 19.6 ALLERGIES: No Known Drug Allergy Start 19:16 06/03/2016 Riaz Alvarado Medication Administered: IV NS (SALINE), Dose: IV Fluids over 9 hour(s), Rate: 100 mL/hr, Dispensed: 1000 mL bag, Site: #1 left AC. Medication Ordered: IV NS : initial bolus 250 mL (1000 mL/hr), then 100 mL/hr for 4h (NOW); Urgent. Given 20:26 06/03/2016 Riaz Alvarado Medication Administered: PROTONIX 40MG [IVP] (PANTOPRAZOLE SODIUM), Dose: 40 mg IVP over 3 minute(s), Site: #1 left AC. Medication Ordered: Protonix IVP 40mg 40 mg (Mix in NS 10ml over 2min). Start 21:29 06/03/2016 Riaz Alvarado Medication Administered: IV NS (SALINE), Dose: IV Fluids, Rate: 100 mL/hr, Site: #1 left AC. Medication Ordered: IV NS : initial bolus 250 mL (1000 mL/hr), then 100 mL/hr for 4h (NOW); Urgent.
[2016-06-03 21:43] VITALS: BP 136/77
--- NOTE | 2016-06-03 22:22 | NUR ---
CLARIFIED WITH DR. SIU REGARDING PATIENTS POTASSIUM RIDER AND PRIMARY BAG WITH POTASSIUM IN IT. HE SAID THAT THE ORDERS ARE STILL ACITVE FOR PATIENT.
--- NOTE | 2016-06-03 22:44 | NUR ---
PATIENT WAS TRASNFERED TO ACUTE CARE BED AROUND AN HOR AGO. ALERT AND ORIETED, NO C/O PAIN. NO C/O N/V AT CURRENT MOMENT. NO C/O PAIN CURRENTLY. LUNG SOUNDS DIMINISHED. BOWEL TONES PRESENT ALL QUARDRANTS. CURRENTLY RESTING IN ROOM. DR SIU AWARE OF PATIENTS CURRENT LAB VALUES. DR SIU AWARE OF IV BAGS HANGING CURRENTLY (BOTH WITH POTASSIUM). CALL LIGHT WITHIN REACH FOR PATIENT.
--- NOTE | 2016-06-03 23:49 | Progress Note ---
Subjective General ADVANCED CARE PLAN History of Present Illness The patient is a 89-year-old white male with a significant past medical history of atrial fibrillation, chronic anticoagulation, heart block status post pacemaker placement, hypercholesterolemia, coronary artery disease, allergic rhinitis, who presented to [facility] emergency department on the day of admission secondary to complaints of generalized weakness, fatigue, nausea/vomiting blood, questionable epistaxis, and black stools unchanged patient on iron. [facility] ER evaluation was consistent with suspected upper GI bleed, dysphagia and generalized weakness. Secondary to the above, the patient was admitted by me with consultation by Ronald Mcgowan M.D. for further evaluation and treatment. For other history present illness, past medical history, family history, social history, review of systems, and admission physical examination please see the patient's history and physical examination and ER visit note in the patient's medical record. A discussion was undertaken with the patient regarding previous advance care arrangements/decisions. The following advanced directives were noted by the patient and discussed with me at the time of admission. ADVANCED DIRECTIVES: 1. Living well: Yes 2. POLST: No 3. CODE STATUS: NO CODE-DO NOT RESUSCITATE, DO NOT INTUBATE 4. Durable Power Manufacturing Applications Engineer Health care: Yes 5. Donor card: No The patient has expressed interest in not pursuing any form of resuscitation at this time. He has opted not to pursue intubation/mechanical ventilation, CPR, electrical cardioversion, or life-sustaining efforts involving drugs at the time of cardiopulmonary arrest. The patient has a DURABLE POWER OF MAJOR GIFTS MANAGER for healthcare and living well. He does not process a donor card. The patient's wishes were documented in the chart and orders regarding the patient's wishes entered into the [employer] CPOE system. The "Advance Care Plan Document" was distributed to patient to discuss with his family in a.m. Less than 30 minutes was spent in performing the above tasks and documentation of the patient's advanced care plan.
--- NOTE | 2016-06-03 23:49 | Progress Note ---
Subjective General ADVANCED CARE PLAN History of Present Illness The patient is a 89-year-old white male with a significant past medical history of atrial fibrillation, chronic anticoagulation, heart block status post pacemaker placement, hypercholesterolemia, coronary artery disease, allergic rhinitis, who presented to [facility] emergency department on the day of admission secondary to complaints of generalized weakness, fatigue, nausea/vomiting blood, questionable epistaxis, and black stools unchanged patient on iron. [facility] ER evaluation was consistent with suspected upper GI bleed, dysphagia and generalized weakness. Secondary to the above, the patient was admitted by me with consultation by Ronald Mcgowan M.D. for further evaluation and treatment. For other history present illness, past medical history, family history, social history, review of systems, and admission physical examination please see the patient's history and physical examination and ER visit note in the patient's medical record. A discussion was undertaken with the patient regarding previous advance care arrangements/decisions. The following advanced directives were noted by the patient and discussed with me at the time of admission. ADVANCED DIRECTIVES: 1. Living well: Yes 2. POLST: No 3. CODE STATUS: NO CODE-DO NOT RESUSCITATE, DO NOT INTUBATE 4. Durable Power Feeder Driver Health care: Yes 5. Donor card: No The patient has expressed interest in not pursuing any form of resuscitation at this time. He has opted not to pursue intubation/mechanical ventilation, CPR, electrical cardioversion, or life-sustaining efforts involving drugs at the time of cardiopulmonary arrest. The patient has a DURABLE POWER OF CIRCULATION ASSISTANT for healthcare and living well. He does not process a donor card. The patient's wishes were documented in the chart and orders regarding the patient's wishes entered into the [employer] CPOE system. The "Advance Care Plan Document" was distributed to patient to discuss with his family in a.m. Less than 30 minutes was spent in performing the above tasks and documentation of the patient's advanced care plan.
[2016-06-04] VITALS (7 sets, daily range): BP systolic 86–123; BP diastolic 51–77
--- NOTE | 2016-06-04 00:03 | NUR ---
HAS SCDS IN ROOM TO PREVENT DVT. DR SIU AWARE OF CURRENT LABS.
--- NOTE | 2016-06-04 01:08 | NUR ---
Pt. is resting in bed at this time. Alert, oriented, and cooperative with care. Pt. is NPO at this time, will have consult in am with Dr. Mcgowan for possible EGD per Dr. Brady. IV fluids infusing without issues. Pt. denies pain. Is able to turn on his own without issues. C/o weakness, and states he has had ongoing issues with swallowing. Skin turgor is poor, skin is generally fragile. SCDs on. Using urinal while in bed. Waffle mattress in place. Call light within reach. WCTM.
--- NOTE | 2016-06-04 09:12 | CONSULTATION REPORT ---
DATE OF CONSULTATION: 06/04/2016 CHIEF COMPLAINT: 1. Dysphagia HISTORY OF PRESENT ILLNESS: The patient is an 89-year-old man who was brought to the hospital yesterday with a 2 or 3 month history of weight loss, dysphagia, black stools and weakness. This has gotten worse to the point of serious fatigue. He has had problems with food not going down and has been spitting up and spitting up his own secretions on occasion. He apparently recently noticed there was sometimes blood mixed in with the secretions, whether he was coughing or regurgitating. MEDICAL/SURGICAL HISTORY: Medical history includes neuropathy, pneumonia, bradycardia, hemorrhage, previous skull fracture. Past surgery, PTCA, cholecystectomy, and pacemaker placement. MEDICATIONS: 1. Simvastatin 10 mg at bedtime. 2. Fluticasone nasal spray. 3. KCl 20 mEq daily. 4. Fenofibrate p.o. dose unknown. 5. Eliquis 5 mg every day. 6. Carvedilol ER 6.25 mg b.i.d. 7. Zantac, dose unknown. 8. Colace and nutritional supplements. 9. Azelastine HCL nasal spray. 10. Fluticasone nasal spray. ALLERGIES: 1. NONE KNOWN TO MEDICATIONS. SOCIAL HISTORY: The patient lives with a family member and apparently has good social support. Smoking status and drinking status currently unknown and unavailable. FAMILY HISTORY: Unavailable at this time. REVIEW OF SYSTEMS: Obtained yesterday by Dr. Garcia in the emergency department, and was reviewed. The main symptoms are already described in the history of present illness. He does have chronic pedal edema and constipation. PHYSICAL EXAMINATION: VITAL SIGNS: Blood pressure 117/73, heart rate of 71, O2 saturation 99%, temperature 98.4. GENERAL: The patient was nonverbal, responsive and appeared to be somnolent and tired. CHEST: Clear to auscultation. He has a systolic murmur in the upper chest. ABDOMEN: Nontender to palpation. He did not have obvious large lymph nodes or masses in the neck. LAB/IMAGING: Chest x-ray reveals old parenchymal scarring. He has a left subclavian pacemaker in place. Lab tests: his white count was 9.2, initial hemoglobin and hematocrit of 13.5 and 40.6. His INR and PTT are both elevated. BNP was 386, BUN and creatinine 21 and 1.6, albumin was 3, protein 7.2. IMPRESSION: 1. Possible upper gastrointestinal stenosis or neoplasm. PLAN: The patient is admitted on the internal medicine service who is maintaining his medications. We will hold his oral anticoagulants and add him on for an upper gastrointestinal endoscopy today.
--- NOTE | 2016-06-04 10:23 | NUR ---
NUTRITION ASSESSMENT: S: Pt admitted with dx/o dysphagia, GIB, malnourished. Pt with PMH of neuropathy, PNA, bradycardia, hemorrage, previous skull fx, pacemaker, cholesystectomy, see H&P for complete list. Apparently pt has had recent wt loss over the past 2-3 months with dysphagia and black stools, weakness. Per report pt has had swallow evals, barium swallow study and now will have EGD here as an inpatient as impression per MD notes is possible upper GI stenosis or neoplasm. O: Diet Rx: NPO NKFA Wts: 70.7 kg Ht: 74" IBW: 71-88 kg BMI: 20.0 Est Kcals: ~3853-5341 kcals per day Est Fluids: ~7838-8044 mls per day Est Pro: ~80-96 g per day Meds Incl: protonix, IVFs, ceftriazone, see eMar for complete list/details. Labs Incl: glucose 108, BUN 16, Creat 1.4, Na+ 145, K+ 3.2, Ca+ 8.5 cholesterol 94, TG 125, HDL 35, HCT 35.9, HGB 11.6, MCV 91, MCh 11.5 (3/6) albumin 3.0, total pro 7.2 Skin: Buck Score; 15 fragile skin waffle overlay in place A: Pt currently NPO, EGD this morning. Pt BMI wnl, but has apparently loss weight d/t unable to eat much in the last 2-3 months. Will await results of EGD. Pt had swallow evals prior to admission, would be nice to obain results/records. Did not see a POLST form for pt wishes for nutrition support if needed. RD to follow closely and avail for consult prn. P: 1. F/u with EGD results and decion for PO vs enteral nutrition?
--- NOTE | 2016-06-04 11:55 | NUR ---
1145-- PT INTERVIEWED IN POH, ALERT, ORIENTED, CONFIRMS PROCEDURE, NKA, NPO. SIGNED CONSENT, PROCEDURE FOR DYSPHAGIA, GI BLEED
--- NOTE | 2016-06-04 13:16 | NUR ---
LATE ENTRY. PT IS AWAKE AND ALERT PRIOR D/C FROM PACU. PT DENIES PAIN OR NAUSEA. PT STATES HE IS ABLE TO SWALLOW W/O ANY DIFFICULTIES. VSS. WARM BLANKETS WERE OFFERED FOR COMFORT. REPORT GIVEN TO RAYNA.
--- NOTE | 2016-06-04 13:41 | NUR ---
PATIENT WITH 200CC'S URINE OUTPUT THIS SHIFT. MD NOTIFIED AND NEW ORDERS FOR CHANGE IN IV FLUIDS. WILL CONTINUE TO MONITOR.
--- NOTE | 2016-06-04 14:19 | OPERATIVE REPORT ---
DATE OF SURGERY: 06/04/2016 SURGEON: Ronald Mcgowan MD PREOPERATIVE DIAGNOSIS: 1. 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 Esophagogastroduodenoscopy with biopsies ANESTHESIA: Total IV general. INDICATIONS: The patient is an 89-year-old man with dysphagia and progressive weight loss. SURGICAL TECHNIQUE: The patient was taken to the endoscopy suite, where total IV general was administered and the patient was placed in the left lateral decubitus position. A well-lubricated endoscope was inserted down the esophagus. At the lower end of the esophagus, there were pooled secretions. At this point, there was a near obstructive lesion which was ulcerated. This extended about 3 cm above the GE junction, though the exact location was somewhat obscured. It was possible to work the endoscope down past the semi-obstructing lesion, into the gastric body, and a retroflexed view demonstrated there was an obvious neoplasm seen from within the stomach. The stomach and duodenum were examined, and on withdrawal, biopsies were taken, both on retroflexed and anteflexed mode. The patient left the operating room in stable condition.
--- NOTE | 2016-06-04 15:22 | Progress Note ---
Subjective General Pt seen and examined this morning. Patient went to have an upper endoscopy today , which showed the presence of a large fungating mass. The scope was able to be advanced however there was significant tightness surrounding the mass. Patient is otherwise stable. Constitutional Malaise. Denies: Fever, Chills, Sweats, Weakness, Other. Eyes Denies: Pain, Vision Change, Conjunctival Inflammation, Eyelid Inflammation, Redness, Other. ENT Denies: Ear Pain, Ear Discharge, Nose Pain, Nasal Discharge, Nasal Congestion, Mouth Pain, Mouth Swelling, Throat Pain, Throat Swelling, Other. Respiratory Denies: Cough, Dry, SOB w/exertion, Wheezing, Hemoptysis, Pleuritic Pain, Sputum , Other. Cardiovascular Denies: Chest Pain, Palpitations, Orthopnea, PND, Edema, Light-headedness, Other. Gastrointestinal Nausea, Vomiting. Denies: Abdominal Pain, Diarrhea, Constipation, Melena, Hematochezia, Other. Genitourinary Denies: Dysuria, Frequency, Incontinence, Hematuria, Retention, Other. Musculoskeletal Denies: Neck Pain, Shoulder Pain, Arm Pain, Back Pain, Hand Pain, Leg Pain, Foot Pain, Other. Skin Denies: Rash, Lesions, Jaundice, Bruising, Other. Neurological Weakness. Denies: Numbness, Incoordination, Change in speech, Confusion, Seizures, Other. Physical Exam Vital Signs / I&Os Vital Signs Date Time Temp Pulse Resp B/P Pulse O2 O2 Flow FiO2 Ox Delivery Rate 06/04 1337 73 16 123/75 100 Room Air 0.0 03/07 1330 71 17 121/77 99 Room Air 0.0 03/07 1313 74 16 121/75 95 Room Air 0.0 03/07 1234 98.6 74 17 114/71 98 03/07 1230 74 17 114/71 99 03/07 1225 74 17 108/73 99 03/07 1220 78 18 110/60 97 Nasal 3.0 Cannula 03/07 1215 73 15 110/60 95 Nasal 3.0 Cannula 03/07 1210 73 19 90/63 100 Nasal 3.0 Cannula 03/07 1209 96.6 67 11 88/54 99 Nasal 4.0 Cannula 03/07 1018 97.3 70 16 102/65 98 Room Air 0.0 03/07 0851 98 03/07 0704 97.9 68 16 94/55 98 Room Air 0.0 06/04 0348 101/62 06/04 0329 97.5 76 16 86/51 98 Room Air 06/03 2143 97.9 84 24 136/77 97 Room Air 06/03 2038 78 13 115/70 100 I&O 06/03 0800 06/03 1600 06/04 0000 Intake Total Output Total Balance General Appearance Alert, Oriented X3, No acute distress HEENT Atraumatic, PERRLA, Moist mucous membranes Lungs Clear to auscultation, Normal air movement Neck No JVD, No masses, No thyromegaly, No lymphadenopathy, 2+ carotid pulse wo bruit Cardiovascular Regular rate and rhythm, Normal S1 and S2, No murmurs, gallops, rubs Abdomen Soft, No tenderness, No guarding, No rebound, No masses, No hepatosplenomegaly Rectal No masses, Normal prostate Extremities No clubbing, Normal pulses, No tenderness, Jordin's sign negative Skin No Breakdown, No Significant Lesions Neurological Normal speech, Normal tone, Reflexes 2+ and equal, Cranial nerves intact LAB Results Laboratory Tests 06/03 06/03 06/03 1800 1800 1900 Chemistry Plasma Sodium (136 - 145 mmol/L) 147 Plasma Potassium (3.5 - 5.1 mmol/L) 3.2 Plasma Chloride (98 - 107 mmol/L) 108 CO2 (Enzymatic) (21 - 32 mmol/L) 26 BUN (7 - 18 mg/dL) 21 Creatinine (0.6 - 1.3 mg/dL) 1.6 Est GFR ( Amer) (mL/min) 52.69 Est GFR (Non-Af Amer) (mL/min) 43.47 Glucose (70 - 110 mg/dL) 101 Plasma Calcium (8.5 - 10.1 mg/dL) 9.2 Total Bilirubin (0.0 - 1.0 mg/dL) 1.0 AST (15 - 37 U/L) 23 ALT (12 - 78 U/L) 14 Alkaline Phosphatase (46 - 116 U/L) 88 Creatine Kinase (24 - 260 U/L) 42 Troponin (0.00 - 1.5 ng/mL) <0.05 B-Natriuretic Peptide (5 - 100 pg/ml) 386 Total Protein (6.4 - 8.2 g/dL) 7.2 Albumin (3.3 - 5.0 g/dL) 3.0 Amylase (25 - 115 U/L) 39 Lipase (73 - 393 U/L) 109 Coagulation INR (0.8 - 1.2) 1.4 APTT (24 - 34 SECONDS) 42 D-Dimer, Quantitative (0.27 - 0.52 ug/mLFEU) < 0.27 Hematology WBC (4.5 - 11.5 K/uL) 9.2 RBC (4.50 - 5.90 M/uL) 4.50 Hgb (13.5 - 17.5 gm/dL) 13.5 Hct (41.0 - 53.0 %) 40.6 MCV (80 - 100 fL) 90 MCH (26 - 34 pg) 30 RDW (11.6 - 14.8 %) 16.3 Neut % (Auto) (50 - 75 %) 71.4 Lymph % (Auto) (25 - 40 %) 19.4 [place] % (Auto) (3 - 14 %) 7.9 Eos % (Auto) (0 - 4 %) 0.8 Baso % (Auto) (0 - 2 %) 0.5 Plt Count, EDTA (150 - 400 K/uL) 227 PUBS MCHC (31 - 37 g/dL) 33 Urines Urine Color YELLOW Urine Appearance CLEAR Urine pH (5.0 - 8.0) 5.5 Ur Specific [place] (1.010 - 1.030) 1.025 Urine Protein (NEGATIVE) NEGATIVE Urine Ketones (NEGATIVE) NEGATIVE Urine Blood (NEGATIVE) NEGATIVE Urine Nitrite (NEGATIVE) POSITIVE Urine Bilirubin (NEGATIVE) NEGATIVE Urine Urobilinogen (0.2 - 1.0 EU/dL) 0.2 Ur Leukocyte Esterase (NEGATIVE) NEGATIVE Urine RBC (0 - 1 rbc/hpf) 0-1 Urine WBC (0 - 1 wbc/hpf) 3-5 Ur Epithelial Cells (0 - 5 EPI/hpf) 0-1 Urine Bacteria (NONE SEEN) MANY (4+) Urine Glucose (NEGATIVE) NEGATIVE Urine Comment CULTURE INDICATED 06/03 06/03 06/04 06/04 06/04 2117 2200 0400 0510 0510 Chemistry Plasma Sodium (136 - 145 mmol/L) 145 Plasma Potassium (3.5 - 5.1 mmol/L) 3.2 Plasma Chloride (98 - 107 mmol/L) 109 CO2 (Enzymatic) (21 - 32 mmol/L) 26 BUN (7 - 18 mg/dL) 16 Creatinine (0.6 - 1.3 mg/dL) 1.4 Est GFR ( Amer) (mL/min) >60 Est GFR (Non-Af Amer) (mL/min) 50.72 Glucose (70 - 110 mg/dL) 108 Plasma Calcium (8.5 - 10.1 mg/dL) 8.5 Plasma Magnesium (1.8 - 2.4 mg/dL) 2.1 Triglycerides (30 - 200 mg/dL) 125 Cholesterol (140 - 200 mg/dL) 94 LDL Cholesterol, Calc (mg/dL) 34 HDL Cholesterol (32 - 96 mg/dL) 35 LDL/HDL Ratio 1.0 Cholesterol/HDL Ratio 2.7 Coronary Risk Interp (0.4 - 1.0) 0.5 Hematology WBC (4.5 - 11.5 K/uL) 6.9 RBC (4.50 - 5.90 M/uL) 3.94 Hgb (13.5 - 17.5 gm/dL) 12.9 Cancelled 11.5 Hct (41.0 - 53.0 %) 39.8 Cancelled 35.7 MCV (80 - 100 fL) 91 MCH (26 - 34 pg) 29 RDW (11.6 - 14.8 %) 16.2 Neut % (Auto) (50 - 75 %) 61.5 Lymph % (Auto) (25 - 40 %) 25.4 [facility] % (Auto) (3 - 14 %) 9.4 Eos % (Auto) (0 - 4 %) 2.3 Baso % (Auto) (0 - 2 %) 1.4 Plt Count, EDTA (150 - 400 K/uL) 202 PUBS MCHC (31 - 37 g/dL) 32 03/07 1000 Hematology Hgb (13.5 - 17.5 gm/dL) 11.6 Hct (41.0 - 53.0 %) 35.9 Microbiology Date/Time Procedure - Status Source Growth 06/03 1900 Urine Culture - RES URINE CC Assessment and Plan Problem List 1. GI bleed Plan - secondary to extension of mass and mass hemorrhage - no evidence of active bleeding at the moment - patient has evidence of a large mass compressing the GE junction - will look to transfer patient for higher level of care and possible stent placement - will need facility with accepting GI specialist and oncoloist 2. Chronic anticoagulation Status Chronic Onset Date Unknown Plan -Patient with history of anticoagulation secondary to atrial fibrillation -Hold anticoagulation, Eliquis 3. Epistaxis Status Acute Onset Date Unknown Plan - non-existent - no evidence of bleeding 4. Atrial fibrillation Status Chronic Onset Date Unknown Plan -Patient with history of atrial fibrillation -Previous anticoagulation with Eliquis -Heart rate controlled with paced rhythm -Check thyroid function tests -Recheck echocardiogram if not done recently -Continue Coreg as appropriate 5. Hypernatremia Status Acute Onset Date Unknown Plan -Patient with findings of hypernatremia -IV fluids-D5 0.2 normal saline with KCl 20 mEq per liter at 100 cc per hour 6. Hypokalemia Status Acute Onset Date Unknown Plan - stable - will continue to monitor 7. Malnutrition Status Acute Onset Date Unknown Plan - secondary to persistent dysphagia - patient has a large gastric mass which is preventing the patient from eating adequately - given patients currently pathology unsure to as whether the patient would benefit from esophageal stenting, or peg tube - pt is adament that he doenst want a peg tube will discuss further 8. UTI (urinary tract infection) Status Acute Onset Date 06/03/16 Plan - will c.w cetriaxone 1 gm daily
--- NOTE | 2016-06-04 15:40 | DIAGNOSTIC IMAGING REPORT ---
PROCEDURE: CT THORAX ABD PELVIS W/CONT INDICATION: Gastric cancer. Assess for metastases. Initial encounter. TECHNIQUE: 100 ml of Isovue 300 injected intravenously and axial images were obtained of the entire thorax, abdomen, and pelvis with sagittal and coronal reformations. COMPARISON: Chest x-ray 06/03/2016 FINDINGS: THORAX: Small posterior left lower and upper lobe infiltrates with air bronchograms suggestive of pneumonia. Small calcified left upper lobe granuloma. 7 x 2 mm left upper lobe noncalcified opacity (image 23). Small left pleural effusion. No adenopathy. Pacemaker. Mild atherosclerosis of the aorta. Severe calcific atherosclerosis of the coronaries. Normal heart size. Moderate dilation of the entire esophagus secondary to a heterogeneous mass at the GE junction. There are two pill fragments in the mid esophagus. Mild T4 superior endplate compression fracture which appears chronic.. ABDOMEN: Approximate 3 cm GE junction mass with right perigastric lymph nodes, largest 2.2 cm. Multiple heterogeneous hepatic lesions, mostly in the right hepatic lobe, largest 4 cm. There is a 2.7 x 3.1 cm right adrenal inhomogeneous mass. The pancreas, spleen, left adrenal gland and left adrenal gland are normal. Multiple small renal cysts. Moderate atherosclerosis of the aorta. Mild descending colon diverticulosis. Mild to superior endplate compression fracture which appears chronic. Moderate degenerative changes of the spine. PELVIS: Enlarged prostate (6.9 x 5.7 cm). Normal appendix. Normal bladder. Small amount of free fluid. No inflammatory changes. There is fluid in the right inguinal canal but no definite hernia. No suspicious osseous lesions. IMPRESSION: 1. Approximate 3 cm GE junction mass with perigastric adenopathy, multiple hepatic lesions and trace ascites consistent with metastases. There is also a right adrenal mass which may represent an additional metastasis. 2. Secondary moderate dilation of the entire esophagus with some residual pill fragments in the mid esophagus 3. Left posterior upper lower lobe infiltrates suggestive of pneumonia, possible aspiration, with small effusion. 4. Calcified pulmonary granuloma 5. 7 x 2 mm left upper lobe noncalcified opacity, indeterminate. 6. Dr. Redman was contacted. All CT scans at this facility use dose modulation, iterative reconstruction, and/or weight-based dosing when appropriate to reduce radiation dose to as low as reasonably achievable.
--- NOTE | 2016-06-04 15:43 | NUR ---
PATIENT TAKING CLEAR LIQUIDS AFTER EGD DONE. PATIENT HAS COPIOUS AMOUNTS OF PHLEGM WHILE DRINKING ANY FLUIDS. HE STATES THAT IS HOW IT HAS BEEN FOR THE PAST 9 MONTHS. SON AND SON'S PARTNER HERE AND MD SPOKE WITH PATIENT AND FAMILY ABOUT RESULTS OF EGD.
[2016-06-05 02:15] VITALS: BP 97/54
--- NOTE | 2016-06-05 02:40 | NUR ---
Pt. is resting in bed at this time. Pt. woke up to use urinal. Is tolerating PO fluids ok, no excessive drooling, sips water slowly, sits upright completely while taking PO fluids. Denies pain. Assessment and documentation before 0000 documented in paper chart due to [employer]/computer downtime. Call light within reach. TM.
[2016-06-05 07:18] VITALS: BP 112/68
--- NOTE | 2016-06-05 08:55 | NUR ---
RECEIVED PT UP IN THE CHAIR, AWAKE, ALERT, ORIENTED, COHERENT, COOPERATIVE. V/S TAKEN AND RECORDED. ASSESSMENT DONE. PT DENIES ANY PAIN AT THIS TIME. TOLERATED HIS CLEAR LIQUID GOOD BUT HE SPIT OUT/VOMITTED? APPROX 100ML OF CLEAR LIQUID DIET. TRIED TO GIVE HIS LIQUID POTASSIUM BUT PT VOMITTED AFTER TAKING IT. DR QUINTANA NOTIFIED. NEEDS ATTENDED.
[2016-06-05 11:58] VITALS: BP 109/57
--- NOTE | 2016-06-05 14:00 | NUR ---
PT'S SON MR GARCIA IS AT BEDSIDE AND WANTS TO SPEAK WITH DR SALDAÑA AND MS BLANTON. DR SALDAÑA CAME TO TALK WITH PT AND SON REGARDING PLAN OF CARE THEN MS BLANTON SPOKE WITH THEM TOO.
[2016-06-05 15:05] VITALS: BP 99/57
[2016-06-05] MEDS ORDERED: CARVEDILOL6.25 MG PO (15:24)
[2016-06-05] MEDS ORDERED: COLACE100 MG (15:25)
[2016-06-05] MEDS ORDERED: ELIQUIS5 MG PO (15:25)
[2016-06-05] MEDS ORDERED: ASTEPRO0.15 % (15:25)
[2016-06-05] MEDS ORDERED: FENOFIBRATE40 MG (15:26)
[2016-06-05] MEDS ORDERED: FLUTICASONE PR50 MCG (15:27)
[2016-06-05] MEDS ORDERED: POTASSIUM CHLO10 ME2 PO (15:27)
[2016-06-05] MEDS ORDERED: SIMVASTATIN10 MG PO (15:28)
[2016-06-05] MEDS ORDERED: ZANTAC 150 MAX150 MG PO (15:29)
--- NOTE | 2016-06-05 16:10 | NUR ---
NUTRITION FOLLOW UP NOTE: Pt s/p EGD (see dictated results). Pt and family contemplating stent vs PEG tube. MD to discuss with family, however nsg states that pt has said he does not want a feeding tube. RD avail for consult and will continue to monitor closely.
--- NOTE | 2016-06-05 16:39 | NUR ---
I discussed with the patient their current medications, possible side effects, and answered questions.
--- NOTE | 2016-06-05 17:48 | Progress Note ---
Subjective General Patient seen and examined. Patient has no complaints at the time of exam. Patient is still having occasional vomiting with sips of liquid. Additionally a family meeting was held to discuss goals of care and how we want to pursue with this new finding of gastric mass. Patients options were explained to him and patient wished to pursue hospice. Arragnements will be made for such. Constitutional Denies: Fever, Chills, Sweats, Weakness, Malaise, Other. Eyes Denies: Pain, Vision Change, Conjunctival Inflammation, Eyelid Inflammation, Redness, Other. ENT Denies: Ear Pain, Ear Discharge, Nose Pain, Nasal Discharge, Nasal Congestion, Mouth Pain, Mouth Swelling, Throat Pain, Throat Swelling, Other. Respiratory Denies: Cough, Dry, SOB w/exertion, Wheezing, Hemoptysis, Pleuritic Pain, Sputum , Other. Cardiovascular Denies: Chest Pain, Palpitations, Orthopnea, PND, Edema, Light-headedness, Other. Gastrointestinal Vomiting. Denies: Nausea, Abdominal Pain, Diarrhea, Constipation, Melena, Hematochezia. Genitourinary Denies: Dysuria, Frequency, Incontinence, Hematuria, Retention, Other. Musculoskeletal Denies: Neck Pain, Shoulder Pain, Arm Pain, Back Pain, Hand Pain, Leg Pain, Foot Pain, Other. Skin Denies: Rash, Lesions, Jaundice, Bruising, Other. Neurological Denies: Weakness, Numbness, Incoordination, Change in speech, Confusion, Seizures, Other. Physical Exam Vital Signs / I&Os Vital Signs Date Time Temp Pulse Resp B/P Pulse O2 O2 Flow FiO2 Ox Delivery Rate 06/05 1505 100.0 42 18 99/57 90 Room Air 06/05 1158 97.5 74 18 109/57 96 Room Air 0.0 06/05 0900 Room Air 0.0 06/05 0718 97.3 67 18 112/68 96 Room Air 0.0 06/05 0215 98.4 66 16 97/54 94 Room Air I&O 06/04 0800 06/04 1600 06/05 0000 Intake Total 819 588 Output Total 400 650 Balance 419 -62 General Appearance Alert, Oriented X3, No acute distress HEENT Atraumatic, PERRLA, EOMI, Moist mucous membranes Lungs Clear to auscultation, Normal air movement Cardiovascular Regular rate and rhythm, Normal S1 and S2, No murmurs, gallops, rubs Abdomen Normal bowel sounds, No tenderness, No guarding, No rebound, No masses, No hepatosplenomegaly Extremities No edema, Normal pulses, No tenderness, Strength = upper ext's, Strength = lower ext's, Jordin's sign negative Skin No Rashes, No Breakdown, No Significant Lesions Neurological Normal speech, Normal tone, Sensation intact, Reflexes 2+ and equal , Cranial nerves intact, Strength 5/5 x4 ext's, No lateralizing signs Psych/Mental Status Mood normal LAB Results Laboratory Tests 06/04 2205 Hematology Hgb (13.5 - 17.5 gm/dL) 11.6 Hct (41.0 - 53.0 %) 35.0 Assessment and Plan Problem List 1. GI bleed Plan - secondary to GI hemorrhage. - will avoid anti-coagulation - given current wishes for hospice will make decision to remove medication as a whole 2. Gastric mass Plan - pt has evidence of large gastric mass on endoscopy - pt mas most likely malignancy unknown type - pts wishes is not to have the mass treated and to go to hospice - arrangements will be made for such 3. Atrial fibrillation Status Chronic Onset Date Unknown Plan -rate controlled -will continue with coreg if appropriate 4. CKD (chronic kidney disease) stage 3, GFR 30-59 ml/min Status Chronic Onset Date Unknown Plan - stable - no worsening renal function - will continue with IV fluids 5. Malnutrition Status Acute Onset Date Unknown Plan - secondary to decreased and refluxed food consumption - pt does not want any invasive measures for feeding - will refer to comfort care and comfort care measures
[2016-06-05 18:26] VITALS: BP 94/52
--- NOTE | 2016-06-05 21:19 | NUR ---
Patient had vomited earlier on as evidenced by used sick bag. He confirmed that he had hot madhav drink earlier on as the bag had brown coloured vomitus. However he does not feel nauseois right now and is generally comfortable. Request that he keeps the Edwina Hugger on for now.
[2016-06-05 22:13] VITALS: BP 100/39
[2016-06-06 02:34] VITALS: BP 104/71
[2016-06-06 06:44] VITALS: BP 104/53
--- NOTE | 2016-06-06 10:28 | NUR ---
NUTRITION FOLLOW UP NOTE: Per nsg pt has opted out of stent and PEG tube. Hospice care being considered by pt/family. Pt is currently on a full liquid diet, per nsg pt kept down this morning. Rec add high calorie high protein full liquids. Pt loves hot chocolate and ate his cream of wheat and applesauce this am. Pt tried mashed potatoes last night but found that they are too thick for him to eat. Pt needs thined foods, extra milk on his cream of wheat, etc. Add BOOST Shakes between meals, add ice cream for extra kcals and protein. RD to continue to monitor nutrition indices per protocol and avail for further consult as needed.
[2016-06-06 11:25] VITALS: BP 112/68
--- NOTE | 2016-06-06 11:54 | NUR ---
OOB FOR MEALS. NO S/S OF N/V AND DENIES NEED FOR ANTI-EMETIC. ATE 40% OF BREAKFAST AND HAS BEEN ABLE TO KEEP IT DOWN. PT C/O NOT BEING ABLE TO SWALLOW WELL AND FOOD FEELS LIKE A LUMP IN HIS THROAT. SPITS MODERATE AM0UNT OF SPUTUM WHILE EATING, BUT FOOD STAYING DOWN. DENIES PAIN OR DISCOMFORT. A & O AND ABLE TO MAKE NEEDS KNOWN. WATCHING TV WITH CALL LIGHT IN REACH.
[2016-06-06 14:44] VITALS: BP 115/84
--- NOTE | 2016-06-06 17:20 | Progress Note ---
Subjective General Patient seen and examined. Patient is stable with no worsening statusl. Pt is adament that he would like to go to hospice either at a facility or through home hospice. Constitutional Denies: Fever, Chills, Sweats, Weakness, Malaise, Other. Eyes Denies: Pain, Vision Change, Conjunctival Inflammation, Eyelid Inflammation, Redness, Other. Respiratory Denies: Cough, Dry, SOB w/exertion, Wheezing, Hemoptysis, Pleuritic Pain, Sputum , Other. Cardiovascular Denies: Chest Pain, Palpitations, Orthopnea, PND, Edema, Light-headedness, Other. Gastrointestinal Vomiting. Denies: Nausea, Abdominal Pain, Diarrhea, Constipation, Melena, Hematochezia, Other. Genitourinary Denies: Dysuria, Frequency, Incontinence, Hematuria, Retention, Other. Musculoskeletal Denies: Neck Pain, Shoulder Pain, Arm Pain, Back Pain, Hand Pain, Leg Pain, Foot Pain, Other. Skin Denies: Rash, Lesions, Jaundice, Bruising, Other. Neurological Denies: Weakness, Numbness, Incoordination, Change in speech, Confusion, Seizures, Other. Physical Exam Vital Signs / I&Os Vital Signs Date Time Temp Pulse Resp B/P Pulse O2 O2 Flow FiO2 Ox Delivery Rate 06/06 1444 97.9 67 20 115/84 97 Room Air 06/06 1125 97.9 71 15 112/68 97 Room Air 06/06 0903 Room Air 06/06 0644 98.8 78 12 104/53 91 Room Air 06/06 0234 98.2 73 13 104/71 93 Room Air 06/05 2213 98.6 72 16 100/39 95 Room Air 06/05 2053 Room Air 06/05 1826 97.7 75 18 94/52 96 Room Air I&O 06/05 0800 06/05 1600 06/06 0000 Intake Total 8553 836 8808 Output Total 175 490 600 Balance 1355 170 791 General Appearance Alert, Oriented X3, No acute distress Lungs Clear to auscultation, Normal air movement Neck Supple, No JVD, No masses, No thyromegaly, No lymphadenopathy, 2+ carotid pulse wo bruit Cardiovascular Regular rate and rhythm, Normal S1 and S2, No murmurs, gallops, rubs Abdomen Soft, No tenderness, No guarding, No rebound, No masses, No hepatosplenomegaly Extremities No clubbing, No edema, Normal pulses, No tenderness, Strength = upper ext's, Strength = lower ext's Skin No Rashes, No Breakdown, No Significant Lesions Neurological Normal speech, Normal tone, Sensation intact, Strength 5/5 x4 ext's , No lateralizing signs Assessment and Plan Problem List 1. GI bleed Plan - resolved - secondary to eliquis use and gastric mass hemorrhage - given patients hospice status will discuss with pmd in regards to stopping the medication - will avoid blood thinners for the time being 2. Chronic anticoagulation Status Chronic Onset Date Unknown Plan - will hold for the time being 3. Gastric mass Plan - evidence of large gastric mass on endoscopy - patient does not wish for any extra measures to be made - pt will opt for hospice
--- NOTE | 2016-06-06 18:22 | NUR ---
DIET CHANGED TO GENERAL DIET AND FOR DINNER AND PT UNABLE TO SWALLOW WHOLE FOODS. HAD A SMALL EMESIS. TOLERATES FULL LIQUID DIET WITHOUT N/V. NOTIFIED DR SALDAÑA ABOUT FILLING OUT A POLST FORM WITH PATIENT AND HE STATED HE WOULD ADDRESS IT TOMORROW BEFORE PATIENT DC'D TO [facility]. OOB FOR ALL MEALS. DENIES ANY PAIN OR DISCOMFORT. PLEASANT AND COOPERATIVE.
[2016-06-06 18:35] VITALS: BP 112/68
--- NOTE | 2016-06-06 20:49 | NUR ---
Patient was assisted back in bed. He denies nausea and confirms that he was able to maintain his liquid meals down. He was advised to keep the head of the bed upright. He requested to have the Edwina Hugger on for the night.
[2016-06-06 22:49] VITALS: BP 103/64
[2016-06-07 01:45] VITALS: BP 101/58
[2016-06-07 07:07] VITALS: BP 107/66
--- NOTE | 2016-06-07 09:48 | NUR ---
NUTRITION FOLLOW UP NOTE: This RD recommended change diet order to high dre high pro diet to current diet order (full liquids). Pt given dys mech foods with full liquids, didn't do well with more solid textures but ok with the full liquids. He is drinking boost and mighty shakes with and between meals. Hospice care consult pending. RD avail for further consultation if desired and will follow up per protocol.
[2016-06-07 11:01] VITALS: BP 96/55
--- NOTE | 2016-06-07 12:51 | Provider's Discharge Care Plan ---
Problem, Goal, Plan Problem List 1. Gastric mass Instructions: - pureed food only - dietary suppplements as needed 2. Malnutrition Instructions: - export clerk evaluation needed upon arrival to snf 3. Chronic anticoagulation Instructions: - will stop all anticoagulation given limited benefit
--- NOTE | 2016-06-07 12:51 | Provider's Discharge Care Plan ---
Problem, Goal, Plan Problem List 1. Gastric mass Instructions: - pureed food only - dietary suppplements as needed 2. Malnutrition Instructions: - slot shift manager evaluation needed upon arrival to snf 3. Chronic anticoagulation Instructions: - will stop all anticoagulation given limited benefit
--- NOTE | 2016-06-07 13:09 | Progress Note ---
Subjective General Patient seen and examined. No complaints overnight, patient will be discharged to snf today. Physical Exam Vital Signs / I&Os Vital Signs Date Time Temp Pulse Resp B/P Pulse O2 O2 Flow FiO2 Ox Delivery Rate 06/07 1149 Room Air 06/07 1101 97.9 67 20 96/55 97 Room Air 0.0 06/07 0707 98.4 73 17 107/66 94 Room Air 0.0 06/07 0145 97.9 74 17 101/58 94 Room Air 06/06 2249 98.1 74 18 103/64 94 Room Air 06/06 2140 Room Air 06/06 1835 98.1 72 20 112/68 95 Room Air 06/06 1444 97.9 67 20 115/84 97 Room Air I&O 06/06 0800 06/06 1600 06/07 0000 Intake Total 783 589 1017 Output Total 130 200 300 Balance 301 555 9776 General Appearance Alert, Oriented X3, No acute distress HEENT Atraumatic, Moist mucous membranes Lungs Clear to auscultation Cardiovascular Normal S1 and S2, No murmurs, gallops, rubs Abdomen Soft, No tenderness, No guarding, No hepatosplenomegaly Extremities No clubbing, No edema, Normal pulses, No tenderness, Strength = upper ext's, Strength = lower ext's Skin No Breakdown Neurological Normal speech, Normal tone, Sensation intact, Reflexes 2+ and equal , Cranial nerves intact Assessment and Plan Problem List 1. Gastric mass Plan - present on endoscopy - does not wish for any additional measures - will discharge to hospice 2. Malnutrition Status Acute Onset Date Unknown Plan - secondary to gastric mass and frequent vomiting - will encourage patient to take in pureed food - grinding room inspector evaluation at [facility] 3. Chronic anticoagulation Status Chronic Onset Date Unknown Plan - will dc given limited benefit at this point
--- NOTE | 2016-06-07 13:09 | Progress Note ---
Subjective General Patient seen and examined. No complaints overnight, patient will be discharged to snf today. Physical Exam Vital Signs / I&Os Vital Signs Date Time Temp Pulse Resp B/P Pulse O2 O2 Flow FiO2 Ox Delivery Rate 06/07 1149 Room Air 06/07 1101 97.9 67 20 96/55 97 Room Air 0.0 06/07 0707 98.4 73 17 107/66 94 Room Air 0.0 06/07 0145 97.9 74 17 101/58 94 Room Air 06/06 2249 98.1 74 18 103/64 94 Room Air 06/06 2140 Room Air 06/06 1835 98.1 72 20 112/68 95 Room Air 06/06 1444 97.9 67 20 115/84 97 Room Air I&O 06/06 0800 06/06 1600 06/07 0000 Intake Total 356 911 0652 Output Total 130 200 300 Balance 076 953 2884 General Appearance Alert, Oriented X3, No acute distress HEENT Atraumatic, Moist mucous membranes Lungs Clear to auscultation Cardiovascular Normal S1 and S2, No murmurs, gallops, rubs Abdomen Soft, No tenderness, No guarding, No hepatosplenomegaly Extremities No clubbing, No edema, Normal pulses, No tenderness, Strength = upper ext's, Strength = lower ext's Skin No Breakdown Neurological Normal speech, Normal tone, Sensation intact, Reflexes 2+ and equal , Cranial nerves intact Assessment and Plan Problem List 1. Gastric mass Plan - present on endoscopy - does not wish for any additional measures - will discharge to hospice 2. Malnutrition Status Acute Onset Date Unknown Plan - secondary to gastric mass and frequent vomiting - will encourage patient to take in pureed food - loan documents closer evaluation at [facility] 3. Chronic anticoagulation Status Chronic Onset Date Unknown Plan - will dc given limited benefit at this point
--- NOTE | 2016-06-07 13:13 | Discharge Summary ---
Discharge Summary Report Admit Date 06/03/16 Discharge Date 06/07/16 Admission Diagnosis Frequent vomiting Discharge Diagnosis gastric mass Brief History The patient is a 89-year-old white male with a significant past medical history of atrial fibrillation, chronic anticoagulation, heart block status post pacemaker placement, hypercholesterolemia, coronary artery disease, allergic rhinitis, who presented to [facility] emergency department on the day of admission secondary to complaints of generalized weakness, fatigue, nausea/vomiting blood, questionable epistaxis, and black stools unchanged patient on iron. [facility] ER evaluation was consistent with suspected upper GI bleed, dysphagia and generalized weakness. Secondary to the above, the patient was admitted by Michael Brady M.D. for further evaluation and treatment. The history of present illness apparently began 9 months prior to admission when the patient experienced increasing difficulties with swallowing. He apparently has had recurrent episodes of food being lodged in the esophagus with resultant emesis. This is most severe with meat and bread. Secondary to these complaints the patient was seen by his PCP and underwent swallowing evaluation with barium swallow which was noted to be unremarkable according to the patient. He subsequently was seen by ENT and underwent upper airway evaluation which was reportedly unremarkable. He was treated with nasal washings, Zantac 150 mg by mouth twice a day, and inhalation/intranasal corticosteroids. Despite these efforts his symptoms have not improved. Recently the patient had persistent and increasing symptoms. He is unable to swallow even liquids at a rapid rate at this time. He has persistent problems with solid foods and is unable to take anything solid at this time. This has led to significant weight loss of over 30 pounds in the past several months. This is been associated with generalized weakness/fatigue. He has noted recurrent episodes of emesis with small amounts of blood until today when he noticed significant increase in the amount of bright red blood with emesis. Secondary to the above the patient presented to [facility] emergency department for further evaluation and treatment. Hospital Course Patient was admitted for frequent vomiting and upper gi bleed. Patient was treated with proton pump inhibitors and npo status and patients upper gi bleed had stopped. Patient underwent endoscopy which showed the presence of a large gastric mass with near occlusion of the g-e junction. Patient was given options for treatment, all of which he refused and opted for hospice. Patient was accepted to hospice and patient will be discharged later today. His pmd will follow up with him as needed. General Appearance Alert, Oriented X3, No acute distress HEENT PERRLA, Mucous membran moist/pink Lungs Clear to auscultation Cardiovascular Normal S1, Normal S2, No murmurs Abdomen Soft, No tenderness Skin No Breakdown, No Significant Lesions Neurological Normal speech, Strength at 5/5 X4 ext, Normal tone, Cranial nerves 3-12 NL Discharge Instructions/Meds - limited medical interventions - medications reviewed with pcp - will discharge to snf then hospice
--- NOTE | 2016-06-07 13:13 | Discharge Summary ---
Discharge Summary Report Admit Date 06/03/16 Discharge Date 06/07/16 Admission Diagnosis Frequent vomiting Discharge Diagnosis gastric mass Brief History The patient is a 89-year-old white male with a significant past medical history of atrial fibrillation, chronic anticoagulation, heart block status post pacemaker placement, hypercholesterolemia, coronary artery disease, allergic rhinitis, who presented to [facility] emergency department on the day of admission secondary to complaints of generalized weakness, fatigue, nausea/vomiting blood, questionable epistaxis, and black stools unchanged patient on iron. [facility] ER evaluation was consistent with suspected upper GI bleed, dysphagia and generalized weakness. Secondary to the above, the patient was admitted by Michael Brady M.D. for further evaluation and treatment. The history of present illness apparently began 9 months prior to admission when the patient experienced increasing difficulties with swallowing. He apparently has had recurrent episodes of food being lodged in the esophagus with resultant emesis. This is most severe with meat and bread. Secondary to these complaints the patient was seen by his PCP and underwent swallowing evaluation with barium swallow which was noted to be unremarkable according to the patient. He subsequently was seen by ENT and underwent upper airway evaluation which was reportedly unremarkable. He was treated with nasal washings, Zantac 150 mg by mouth twice a day, and inhalation/intranasal corticosteroids. Despite these efforts his symptoms have not improved. Recently the patient had persistent and increasing symptoms. He is unable to swallow even liquids at a rapid rate at this time. He has persistent problems with solid foods and is unable to take anything solid at this time. This has led to significant weight loss of over 30 pounds in the past several months. This is been associated with generalized weakness/fatigue. He has noted recurrent episodes of emesis with small amounts of blood until today when he noticed significant increase in the amount of bright red blood with emesis. Secondary to the above the patient presented to [facility] emergency department for further evaluation and treatment. Hospital Course Patient was admitted for frequent vomiting and upper gi bleed. Patient was treated with proton pump inhibitors and npo status and patients upper gi bleed had stopped. Patient underwent endoscopy which showed the presence of a large gastric mass with near occlusion of the g-e junction. Patient was given options for treatment, all of which he refused and opted for hospice. Patient was accepted to hospice and patient will be discharged later today. His pmd will follow up with him as needed. General Appearance Alert, Oriented X3, No acute distress HEENT PERRLA, Mucous membran moist/pink Lungs Clear to auscultation Cardiovascular Normal S1, Normal S2, No murmurs Abdomen Soft, No tenderness Skin No Breakdown, No Significant Lesions Neurological Normal speech, Strength at 5/5 X4 ext, Normal tone, Cranial nerves 3-12 NL Discharge Instructions/Meds - limited medical interventions - medications reviewed with pcp - will discharge to snf then hospice
--- NOTE | 2016-06-07 13:30 | NUR ---
WENT OVER DC INSTRUCTIONS WITH PT AND SON. NO PRESCRIPTIONS GIVEN. EDUCATION GIVEN ON CURRENT DIAGNOSIS. PT AND SON STATED UNDERSTANDING. ESCORTED OUT VIA WC TO SON'S CAR FOR TRANSPORT TO [facility] [place]. CALLED AND SPOKE WITH RAYNA SHARMA AND REPORTED OFF TO HER.
== END 2016-06-07 13:30 | DRG 375 ==
LOC: ED SRH 16:28 → TRANS SRH 20:13 → ACUTE2 SRH 21:30
PROVIDERS: Surgery; ADMIT Emergency Medicine
PROC: 0DB68ZX Excision of Stomach, Via Natural or Artificial Opening Endoscopic, Diagnostic (ICD-10-PCS; principal; 2016-06-04 12:30)
DX: C16.0 Malignant neoplasm of cardia (principal); E46 Unspecified protein-calorie malnutrition; N39.0 Urinary tract infection, site not specified; E87.0 Hyperosmolality and hypernatremia; Z68.1 Body mass index [BMI] 19.9 or less, adult; K22.2 Esophageal obstruction; E87.6 Hypokalemia; I48.91 Unspecified atrial fibrillation; Z79.01 Long term (current) use of anticoagulants
CPT/HCPCS: 50004; 60001; 82943; 83526; 84349; 85241; 90001; 90004; 90047; 90074; 90100; 90148; 90155; 90469; 90616; 91004; 91162; 91163; 91320; 91556; 92235; 92530; 92610; 92690; 92720; 94001; 94060; 95059